=== PATIENT | female | born 1985 | race Caucasian/White ===

== ENCOUNTER 2018-09-25 21:56 | Emergency (ER) | payer OTHER ==
[~2018-09-25] VITALS: Ht 165.1 cm; Wt 212.7 kg
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
[2018-09-25] MEDS ORDERED: KETOROLAC 15 MG/ML VIAL. IV ONE (22:30)
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
[2018-09-26] MEDS ORDERED: MELO7.5T29 PO (01:04)
[2018-09-26] MEDS ORDERED: ORPH100T PO (01:04)
[2018-09-26 01:10] VITALS: BP 137/77
== END 2018-09-26 01:12 | disposition home or self-care (01) ==
LOC: ER 21:56
DX: S09.8XXA Other specified injuries of head, initial encounter (principal); M54.5 Low back pain; I10 Essential (primary) hypertension; E66.01 Morbid (severe) obesity due to excess calories; Z68.45 Body mass index [BMI] 70 or greater, adult; Z98.51 Tubal ligation status; V43.52XA Car driver injured in collision with other type car in traffic accident, initial encounter; Y93.89 Activity, other specified; Y92.410 Unspecified street and highway as the place of occurrence of the external cause; Y99.8 Other external cause status
CPT/HCPCS: 36415; 70450; 72131; 84702; 96374; 99285; J1885